=== PATIENT | female | born 1965 | race Caucasian/White ===

== ENCOUNTER → 2019-11-08 | Day surgery (SDC) | payer BC ==
[~2019-11-08] MED LIST: Lidocaine 1% with EPINEPHrine 1:100,000 20 ML MDV ONE
[2019-11-08] MEDS: Lidocaine 1% with EPINEPHrine 1:100,000 20 ML MDV INJECT ONE (09:35)
[2019-11-08 10:48] VITALS: BP 115/69; PULSE 64
--- NOTE | 2019-11-08 12:32 | OR ---
DATE OF OPERATION: 11/08/2019 PREOPERATIVE DIAGNOSIS: SYMPTOMATIC 8-CM LIPOMA, LEFT UPPER BACK. POSTOPERATIVE DIAGNOSIS: SYMPTOMATIC 8-CM LIPOMA, LEFT UPPER BACK. SURGEON: Mando Sandoval MD PROCEDURE: EXCISION OF 8 CM LIPOMA, UPPER BACK. THIS WAS ENUCLEATED FROM THE SUBCUTANEOUS TISSUE. THERE ARE NO OTHER MARGINS PAST THE 8 CM MARGIN OF THE LIPOMA ITSELF. ANESTHESIA: Local. SPECIMEN: Lipoma. INDICATIONS: This 53-year-old female has a palpable mass over the left scapula. This is symptomatic for her, and then, when she leans up against a chair or lays on her back, it puts pressure on this. She also has some radiating pain up toward the middle of the back. By physical examination, this is a lipoma. DESCRIPTION OF PROCEDURE: After adequate preparation, 1% xylocaine with epinephrine was used to infiltrate an area over the skin above the lipoma. This was carried down through the subcutaneous tissue to a capsule of the lipoma. Lipoma was then shelled out from the subcutaneous tissue. This actually came apart in two separate pieces, but totally measured 8 cm in diameter. The deep space was then closed with an interrupted 2-0 Vicryl suture and 4-0 Vicryl was used for the skin. BPB/TOÑAL /[id number]
== END ==
LOC: CC.SDS 08:44
PROVIDERS: ATTEND Surgery
DX: D17.1 Benign lipomatous neoplasm of skin and subcutaneous tissue of trunk (principal); E05.00 Thyrotoxicosis with diffuse goiter without thyrotoxic crisis or storm; I10 Essential (primary) hypertension; E05.90 Thyrotoxicosis, unspecified without thyrotoxic crisis or storm; E78.2 Mixed hyperlipidemia; Z79.82 Long term (current) use of aspirin; Z79.890 Hormone replacement therapy; Z79.899 Other long term (current) drug therapy; Z87.891 Personal history of nicotine dependence